=== PATIENT | female | born 1945 | race Caucasian/White ===

== ENCOUNTER 2023-11-07 14:43 | Emergency (ER) | payer MEDICARE, SELFPAY ==
--- NOTE | ~2023-11-07 | XR_ITS ---
Right ankle Technique: AP, oblique, and lateral views were obtained. Clinical History: Pain Findings: No acute fracture or dislocation is seen. Osseous alignment is anatomic. Ankle mortise and other visualized joint spaces are preserved. Soft tissues are otherwise unremarkable. Impression: Unremarkable right ankle. Reviewed, dictated and finalized at location . ALL STRIPPER Impression: Unremarkable right ankle.
--- NOTE | ~2023-11-07 | XR_ITS ---
Right foot Technique: AP, oblique, and lateral views were obtained. Clinical History: Pain Findings: No acute fracture or dislocation is seen. Osseous alignment is anatomic. Joint spaces are p reserved without erosive or degenerative change. Soft tissues are unremarkable. Impression: Unremarkable right foot radiographs. Reviewed, dictated and finalized at location . E PIPING INSPECTOR Impression: Unremarkable right foot radiographs.
[2023-11-07 14:45] VITALS: BP 138/71; PULSE 96; RESP 18; TEMP 36.4; O2SAT 97
--- NOTE | 2023-11-07 15:36 | ED.EXTPRO ---
HPI - Extremity Problem General Chief complaint: Extremity Problem,Nontraumatic Stated complaint: R foot pain Time Seen by Provider: 11/07/23 15:20 Source: patient Mode of arrival: ambulatory Limitations: no limitations History of Present Illness HPI Narrative: This is a 78 year old female that presents to the ER for right foot pain. Ongoing over the last 5 days. No known injury or trauma. Reports history of foot drop on this side. Reports sharp pain on the lateral aspect of the foot and ankle. Denies fever, erythema or edema. Related Data Allergies Allergy/AdvReac Type Severity Reaction Status Date / Time dulaglutide Allergy Unknown Nausea and Verified 11/07/23 15:29 Vomiting indapamide Allergy Unknown Nausea and Verified 11/07/23 15:29 Vomiting liraglutide Allergy Unknown Nausea and Verified 11/07/23 15:29 Vomiting quinapril Allergy Unknown Nausea Verified 11/07/23 15:29 verapamil Allergy Unknown Nausea and Verified 11/07/23 15:29 Vomiting Review of Systems Review of Systems: CONSTITUTIONAL: Denies fever MUSCULOSKELETAL: Reports joint pain, and myalgia. All systems reviewed & are unremarkable except as noted in HPI and below PMFSH Past Medical History Medical History (Updated 11/07/23 @ 17:14 by Mary Carmen Da Silva PA-C) History of diabetes mellitus History of gastroesophageal reflux (GERD) History of hyperlipidemia History of hypertension Family History Family History (Updated 01/02/19 @ 09:00 by DOCTOR UNKNOWN) Mother Diabetes mellitus Grandparent Diabetes mellitus Social History Social History (Updated 11/07/23 @ 15:39 by Mary Carmen Da Silva PA-C) Smoking status: Never smoker Exam Narrative: GENERAL: Well-appearing, well-nourished, and in no acute distress. HEAD: Normocephalic, atraumatic. EYES: EOMI. EXTREMITIES: Decreased active ROM in the right foot and ankle which is chronic. No obvious deformity. No edema or erythema. Normal DP pulse SKIN: Warm, dry, no rash. NEURO: No focal deficits. Alert and oriented x3. PSYCH: Normal mood and affect Course Course Emergency Course: Patient updated on workup and agrees with plan of care Vital Signs Vital signs: Vital Signs Temperature 97.5 F L 11/07/23 14:45 Pulse Rate 96 11/07/23 14:45 Respiratory Rate 18 11/07/23 14:45 Blood Pressure 138/71 11/07/23 14:45 Pulse Oximetry 97 11/07/23 14:45 Oxygen Delivery Room Air 11/07/23 14:45 Temperature 97.5 F L 11/07/23 14:45 Pulse Rate 96 11/07/23 14:45 Respiratory Rate 18 11/07/23 14:45 Blood Pressure 138/71 11/07/23 14:45 Pulse Oximetry 97 11/07/23 14:45 Oxygen Delivery Room Air 11/07/23 14:45 MDM - Extremity (Nontraumatic) MDM Narrative Medical decision making narrative: Patient presents to the ER for right foot pain. No recent injury or trauma. She is neurovascularly intact at baseline. No erythema, edema of the foot. Right foot and ankle x-rays are without acute findings. Patient was updated on her workup. Instructed to follow up with her application development director for further care. She was given warnings to return to the ER Imaging Data Radiologist's impression: ITS Impressions Ankle X-Ray 11/07/23 15:52 Impression: Unremarkable right ankle. Foot X-Ray 11/07/23 15:53 Impression: Unremarkable right foot radiographs. Critical Care Time Critical Care Time Critical Care Time: No Discharge Plan Discharge Clinical Impression: Acute pain of right foot Patient Disposition: Home, Self-Care Condition: Stable Instructions: Arthralgia (ED) Additional Instructions: Return to the ER if you experience fever, redness and swelling of your extremity, numbness or any other symptoms that are concerning to you Rest. Ice and elevate extremity. Pain medication as needed and directed. Follow up with your application development director for further care. Follow-up/Referrals: Nithya,MD Emili [Primary Care Provi
== END 2023-11-07 17:24 | disposition home or self-care (01) ==
PROVIDERS: Emergency Provider Physician Assistant; PCP Internal Medicine Geriatric Medicine
DX: M79.671 Pain in right foot (principal); I10 Essential (primary) hypertension; E11.9 Type 2 diabetes mellitus without complications; E78.5 Hyperlipidemia, unspecified; K21.9 Gastro-esophageal reflux disease without esophagitis
CPT/HCPCS: 73610; 73630; 99283

== ENCOUNTER 2024-05-12 13:36 | Emergency (ER) | payer OTHER, SELFPAY ==
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
[2024-05-12 13:36] VITALS: BP 142/67; PULSE 80; RESP 18; TEMP 36.6; O2SAT 94
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
[2024-05-12 13:55] LABS: Glucose Point of Care 112 mg/dl (65-105)
[2024-05-12 15:18] VITALS: BP 124/71; PULSE 78; RESP 18; TEMP 36.6; O2SAT 94
== END 2024-05-12 15:18 | disposition home or self-care (01) ==
PROVIDERS: Emergency Provider Emergency Medicine
DX: M54.2 Cervicalgia (principal); E11.9 Type 2 diabetes mellitus without complications; E78.5 Hyperlipidemia, unspecified; I10 Essential (primary) hypertension; Z79.899 Other long term (current) drug therapy; Z79.4 Long term (current) use of insulin; V49.40XA Driver injured in collision with unspecified motor vehicles in traffic accident, initial encounter
CPT/HCPCS: 70450; 71045; 72125; 82948; 99284

== ENCOUNTER 2024-10-07 14:44 | Emergency (ER) | payer MEDICARE, SELFPAY ==
--- NOTE | ~2024-10-07 | CT_ITS ---
CT brain wo con Ordering provider: Mary Carmen Da Silva PA-C History: 79 years Female with . headache, vision changes . Comparison: None. Technique: CT of the head without contrast. Radiation reduction technique utilized. The dose-length product was 681 mGy-cm. FINDINGS: BRAIN PARENCHYMA AND CSF SPACES: Mild leukoaraiosis and diffuse cortical atrophy. Mild atheromatous d isease. No midline shift, mass effect or hemorrhage. The brain parenchyma and CSF spaces are otherwi se normal. VISUALIZED PARANASAL SINUSES: Well aerated. MASTOIDS: Well aerated. BONES: The bones appear intact. SOFT TISSUES: Visualized nasopharynx is normal. Superficial soft tissues are normal. IMPRESSION: No acute intracranial findings. Reviewed, dictated and finalized at location A. 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
[2024-10-07 14:59] VITALS: BP 147/73; PULSE 108; RESP 18; TEMP 36.4; O2SAT 92
--- NOTE | 2024-10-07 18:24 | ED.GENADULT ---
HPI - General Adult General Chief complaint: Unspecified <Mary Carmen Da Silva PA-C - Last Filed: 10/08/24 17:41> Stated complaint: L EYE PAIN X3D. CHEST PAIN YESTERDAY NONE TODAY <Mary Carmen Da Silva PA-C - Last Filed: 10/08/24 17:41> Time Seen by Provider: 10/07/24 18:24 <Mary Carmen Da Silva PA-C - Last Filed: 10/08/24 17:41> Focused HPI: This is a 79 year old female that presents to the ER for left eye pain. Ongoing over the last 3 days. Worse with EOMs, head position changes. Reports vision changes. Reports associated headache. Denies fever, redness, discharge. GENERAL: Elderly, well-nourished, and in no acute distress. HEAD: Normocephalic, atraumatic. CHEST: Clear to auscultation. ?No respiratory distress. HEART: Regular rate and rhythm.? NEURO: ?Alert and oriented x3. Patient screened in triage and initial orders placed.? ?Additional care and disposition to be based upon?diagnostic testing and treatment. <Mary Carmen Da Silva PA-C - Last Filed: 10/08/24 17:41> History of Present Illness HPI narrative: I agree with the above HPI <Abimael Barcenas MD - Last Filed: 10/08/24 06:56> Related Data Home medications: Home Medications ?Medication ?Instructions ?Recorded ?Confirmed ?Last Taken ?Type atorvastatin 40 mg tablet 40 mg PO DAILY 05/12/24 05/12/24 Unknown History beclomethasone dipropionate 80 80 mcg inhalation DAILY 05/12/24 05/12/24 Unknown History mcg/actuation HFA breath activated aerosol (Qvar RediHaler) carvedilol 6.25 mg tablet 6.25 mg PO DAILY 05/12/24 05/12/24 Unknown History chlorthalidone 25 mg tablet 25 mg PO DAILY 05/12/24 05/12/24 Unknown History duloxetine 60 mg capsule,delayed 60 mg PO DAILY 05/12/24 05/12/24 Unknown History release empagliflozin 25 mg tablet 25 mg PO DAILY 05/12/24 05/12/24 Unknown History (Jardiance) famotidine 20 mg tablet 20 mg PO DAILY 05/12/24 05/12/24 Unknown History flash glucose sensor (FreeStyle 05/12/24 05/12/24 Unknown History Nate 2 Sensor kit) insulin aspart U-100 100 unit/mL See Rx Instructions .Route .COMPLEX 05/12/24 05/12/24 Unknown History (3 mL) subcutaneous pen insulin syringe-needle U-100 1 mL 05/12/24 05/12/24 Unknown History 29 gauge x 1/2 (TRUEplus Insulin) losartan 100 mg tablet 100 mg PO DAILY 05/12/24 05/12/24 Unknown History mometasone 50 mcg/actuation nasal 2 spray intranasal BID 05/12/24 05/12/24 Unknown History spray pantoprazole 40 mg tablet,delayed 40 mg PO DAILY 05/12/24 05/12/24 Unknown History release pen needle, diabetic 32 gauge x 05/12/24 05/12/24 Unknown History (TRUEplus Pen Needle) potassium chloride 10 mEq 10 meq PO DAILY 05/12/24 05/12/24 Unknown History tablet,extended release sulfamethoxazole 800 1 tablet PO DAILY 05/12/24 05/12/24 Unknown History mg-trimethoprim 160 mg tablet <Mary Carmen Da Silva PA-C - Last Filed: 10/08/24 17:41> Allergies/adverse reactions: Allergies Allergy/AdvReac Type Severity Reaction Status Date / Time dulaglutide Allergy Unknown Nausea and Verified 10/07/24 14:46 Vomiting indapamide Allergy Unknown Nausea and Verified 10/07/24 14:46 Vomiting liraglutide Allergy Unknown Nausea and Verified 10/07/24 14:46 Vomiting quinapril Allergy Unknown Nausea Verified 10/07/24 14:46 verapamil Allergy Unknown Nausea and Verified 10/07/24 14:46 Vomiting <Mary Carmen Da Silva PA-C - Last Filed: 10/08/24 17:41> Review of Systems Review of Systems: All systems reviewed & are unremarkable except as noted in HPI and below <Abimael Barcenas MD - Last Filed: 10/08/24 06:56> PMFSH Past Medical History Medical History: Medical History History of diabetes mellitus History of gastroesophageal reflux (GERD) History of hyperlipidemia History of hypertension <Mary Carmen Da Silva PA-C - Last Filed: 10/08/24 17:41> Family History Family History: Family History Mother Diabetes mellitus Grandparent Diabetes mellitus <Mary Carmen Da Silva PA-C - Last Filed: 10/08/24 17:41> Social History Social History: Social History Smoking status: Never smoker <Mary Carmen Da Silva PA-C - Last Filed: 10/08/24 17:41> Exam Narrative: APPEARANCE: Well appearing, no pain, no distress, well-nourished. HEAD: Frontal and maxillary sinus tenderness to palpation EYES: PERRLA/EOMI, conjunctivae clear. Normal fundus exam bilaterally. Normal range of motion of the eye without pain. No periorbital edema or erythema NOSE: Normal no drainage EARS:TMS clear with good light reflex. THROAT: Pharynx clear, no exudate. NECK: Supple. No adenopathy, no masses. RESPIRATORY: Airway patent, respirations nonlabored. Clear to auscultation bilaterally, no rales, rhonchi, wheezing. CARDIOVASCULAR: Regular rate and rhythm without murmurs rubs or gallops. ABDOMINAL: Soft, nontender, nondistended, normal bowel sounds MUSCULOSKELETAL: Moves all extremities. Strength/ROM intact, No edema, No calf tenderness. NEURO: Alert. Cranial nerves II through XII intact. Good gait. Good coordination SKIN: Warm, dry. Normal Color <Abimael Barcenas MD - Last Filed: 10/08/24 06:56> Course Vital Signs Vital signs: Vital Signs Temperature 97.6 F 10/07/24 14:59 Pulse Rate 108 H 10/07/24 14:59 Respiratory Rate 18 10/07/24 14:59 Blood Pressure 147/73 H 10/07/24 14:59 Pulse Oximetry 92 10/07/24 14:59 Temperature 97.6 F 10/07/24 14:59 Pulse Rate 97 10/07/24 23:06 Respiratory Rate 16 10/07/24 23:06 Blood Pressure 105/81 10/07/24 23:06 Pulse Oximetry 94 10/07/24 23:06 <Mary Carmen Da Silva PA-C - Last Filed: 10/08/24 17:41> Vital Signs Temperature 97.6 F 10/07/24 14:59 Pulse Rate 108 H 10/07/24 14:59 Respiratory Rate 18 10/07/24 14:59 Blood Pressure 147/73 H 10/07/24 14:59 Pulse Oximetry 92 10/07/24 14:59 Temperature 97.6 F 10/07/24 14:59 Pulse Rate 97 10/07/24 23:06 Respiratory Rate 16 10/07/24 23:06 Blood Pressure 105/81 10/07/24 23:06 Pulse Oximetry 94 10/07/24 23:06 <Abimael Barcenas MD - Last Filed: 10/08/24 06:56> Medical Decision Making MDM Narrative Medical decision making narrative: 79-year-old female presenting to the emergency department for evaluation of 3 days of left eye pain. Patient states the pain is in the area surrounding the eye and not the eyeball itself. Patient had was normal fundus exam. No visual changes. Patient does have tenderness over frontal and maxillary sinuses. Patient states this is similar to a previous sinus infection. Patient reports the pain does radiate down to her teeth intermittently. Head CT was negative for acute intracranial abnormality. Patient was started on Augmentin for suspected sinus infection. Patient was encouraged to have close follow-up with her primary care physician. <Abimael Barcenas MD - Last Filed: 10/08/24 06:56> Differential Diagnosis Differential Diagnosis: Orbital cellulitis, periorbital cellulitis, corneal abrasion, migraine, sinusitis <Abimael Barcenas MD - Last Filed: 10/08/24 06:56> Vital Signs Vital Signs: Vital Signs Temperature 97.6 F 10/07/24 14:59 Pulse Rate 108 H 10/07/24 14:59 Respiratory Rate 18 10/07/24 14:59 Blood Pressure 147/73 H 10/07/24 14:59 Pulse Oximetry 92 10/07/24 14:59 Temperature 97.6 F 10/07/24 14:59 Pulse Rate 97 10/07/24 23:06 Respiratory Rate 16 10/07/24 23:06 Blood Pressure 105/81 10/07/24 23:06 Pulse Oximetry 94 10/07/24 23:06 <Mary Carmen Da Silva PA-C - Last Filed: 10/08/24 17:41> Vital Signs Temperature 97.6 F 10/07/24 14:59 Pulse Rate 108 H 10/07/24 14:59 Respiratory Rate 18 10/07/24 14:59 Blood Pressure 147/73 H 10/07/24 14:59 Pulse Oximetry 92 10/07/24 14:59 Temperature 97.6 F 10/07/24 14:59 Pulse Rate 97 10/07/24 23:06 Respiratory Rate 16 10/07/24 23:06 Blood Pressure 105/81 10/07/24 23:06 Pulse Oximetry 94 10/07/24 23:06 <Abimael Barcenas MD - Last Filed: 10/08/24 06:56> Lab Data Lab results reviewed: Yes I reviewed the patient's lab results. <Abimael Barcenas MD - Last Filed: 10/08/24 06:56> Labs: Lab Results 10/07/24 Range/Units 22:53 POC Capillary Glucose 136 H (65-105) mg/dl <Mary Carmen Da Silva PA-C - Last Filed: 10/08/24 17:41> Lab Results 10/07/24 Range/Units 22:53 POC Capillary Glucose 136 H (65-105) mg/dl <Abimael Barcenas MD - Last Filed: 10/08/24 06:56> Imaging Data Radiologist's impression: ITS Impressions Head CT 10/07/24 19:51 IMPRESSION: No acute intracranial findings. <Mary Carmen Da Silva PA-C - Last Filed: 10/08/24 17:41> Critical Care Time Critical Care Time Critical Care Time: No <Mary Carmen Da Silva PA-C - Last Filed: 10/08/24 17:41> Discharge Plan Discharge Clinical Impression: Frontal sinus pain <Mary Carmen Da Silva PA-C - Last Filed: 10/08/24 17:41> Patient Disposition: Home, Self-Care <Mary Carmen Da Silva PA-C - Last Filed: 10/08/24 17:41> Condition: Stable <Mary Carmen Da Silva PA-C - Last Filed: 10/08/24 17:41> Instructions: Antibiotic Form, Sinusitis (ED), Eye Pain (ED) <Mary Carmen Da Silva PA-C - Last Filed: 10/08/24 17:41> Additional Instructions: Tylenol and ibuprofen for pain control. Antibiotic as directed until completed. Have close follow-up with your primary care physician. If you have any worsening symptoms then please call or return to the emergency department. <Mary Carmen Da Silva PA-C - Last Filed: 10/08/24 17:41> Patient Language: Mozambican <Mary Carmen Da Silva PA-C - Last Filed: 10/08/24 17:41> Prescriptions: New amoxicillin-pot clavulanate 875-125 mg tablet 1 tablet PO Q12H 7 Days Qty: 14 0RF No Action atorvastatin 40 mg tablet 40 mg PO DAILY carvedilol 6.25 mg tablet 6.25 mg PO DAILY potassium chloride 10 mEq tablet extended release 10 meq PO DAILY chlorthalidone 25 mg tablet 25 mg PO DAILY sulfamethoxazole-trimethoprim 800-160 mg tablet 1 tablet PO DAILY famotidine 20 mg tablet 20 mg PO DAILY pantoprazole 40 mg tablet,delayed release (DR/EC) 40 mg PO DAILY mometasone 50 mcg/actuation spray,non-aerosol 2 spray INTRANASAL BID (DME) insulin syringe-needle U-100 [TRUEplus Insulin] 1 mL 29 gauge x 1/2 syringe MISCELLANEOUS losartan 100 mg tablet 100 mg PO DAILY insulin aspart U-100 100 unit/mL (3 mL) insulin pen See Rx Instructions .ROUTE .COMPLEX Rx Instructions: Administer 5 to 20 units under the skin three times daily duloxetine 60 mg capsule,delayed release(DR/EC) 60 mg PO DAILY (DME) pen needle, diabetic [TRUEplus Pen Needle] 32 gauge x 5/32 needle MISCELLANEOUS Jardiance 25 mg tablet 25 mg PO DAILY Qvar RediHaler 80 mcg/actuation HFA aerosol breath activated 80 mcg inhalation DAILY (DME) FreeStyle Nate 2 Sensor Kit MISCELLANEOUS <Mary Carmen Da Silva PA-C - Last Filed: 10/08/24 17:41> Follow-up/Referrals: Nithya,MD Emili [Primary Care Provider] - <Mary Carmen Da Silva PA-C - Last Filed: 10/08/24 17:41>
[2024-10-07 20:46] VITALS: BP 158/90; PULSE 98; RESP 16; O2SAT 94
[2024-10-07 22:44] VITALS: BP 142/68; PULSE 94; RESP 18; O2SAT 96
[2024-10-07 22:56] LABS: Glucose Point of Care 136 mg/dl (65-105)
[2024-10-07 23:06] VITALS: BP 105/81; PULSE 97; RESP 16; O2SAT 94
== END 2024-10-07 23:20 | disposition home or self-care (01) ==
PROVIDERS: Emergency Provider Emergency Medicine; PCP Internal Medicine Geriatric Medicine
DX: R51.9 Headache, unspecified (principal); Z79.4 Long term (current) use of insulin; E11.9 Type 2 diabetes mellitus without complications; E78.5 Hyperlipidemia, unspecified; I10 Essential (primary) hypertension; K21.9 Gastro-esophageal reflux disease without esophagitis
CPT/HCPCS: 70450; 82948; 99284